=== PATIENT | female | born 1935 | race Caucasian/White ===

== ENCOUNTER → 2017-11-09 | Outpatient (CLI) | payer MEDICARE, OTHER ==
[~2017-11-09] MED LIST: ALPR0.5T72 PO; ASPI-587 PO; ATOR10TA PO; CATHETER FLUSH 10 ML SYR IV PRN; GABA-488 PO; HYDR-3062 PO; LVT.112T PO; MELO-195 PO; METO50TA7 PO; PARO20TA57 PO
[2017-11-09 08:58] VITALS: BP 141/86
--- NOTE | 2017-11-09 20:14 | STRESS TEST ---
DATE OF SERVICE: 11/09/2017 EXERCISE MYOVIEW STRESS TEST REPORT REFERRING PHYSICIAN: Salty Mooney DO Baseline heart rate is 75. Baseline blood pressure 157/91. Baseline EKG is sinus rhythm with no ischemic changes. SUMMARY: The patient was injected with 10.33 mCi of technetium-99 Myoview and the resting images were obtained. Then, the patient started exercising with a baseline heart rate, blood pressure and EKG mentioned above. The patient was able to exercise for a total of 2 minutes 15 seconds on standard Praveen protocol. With peak exercise level, EKG was showing nondiagnostic changes. Blood pressure at peak was 199/92. During recovery, heart rate and blood pressure returned to baseline. EKG returned to baseline. The resting and stress images were reviewed and compared in the short axis, horizontal long axis, and vertical long axis views. Review of the images showed increased extracardiac attenuation, the left ventricle is small in size. There was no significant ischemia or infarction was noted. SSS is 6, SDS 3, TID value 0.99. On the gated images, the left ventricle appeared to be in normal size with normal contractility. Calculated ejection fraction 82%. CONCLUSION: 1. Poor exercise tolerance, a total of 2 minutes 15 seconds on standard Praveen protocol, total of 3.6 METS achieving over 100% of maximum expected heart rate. 2. Hypertensive response to exercise, returned to baseline during recovery. 3. Minimal nondiagnostic EKG changes. 4. Extracardiac attenuation affecting the quality of the images with small left ventricular size, no significant ischemia or infarction was noted on the SPECT images, overall nondiagnostic test. 5. Normal left ventricular size with good contractility. Calculated ejection fraction 82%. Job ID: [id number] DocumentID: [id number] Dictated Date: 11/09/2017 16:35:19 Spiral Runner Date: 11/09/2017 20:13:37 Dictated By: SUMAYA MCCORMICK MD
== END ==
LOC: CARD 07:54
PROVIDERS: ATTEND Internal Medicine Cardiovascular Disease
DX: R94.39 Abnormal result of other cardiovascular function study (principal); R07.89 Other chest pain; R06.00 Dyspnea, unspecified; I10 Essential (primary) hypertension; R00.2 Palpitations; F41.9 Anxiety disorder, unspecified; I34.0 Nonrheumatic mitral (valve) insufficiency
CPT/HCPCS: 78452; 93017; 93306

== ENCOUNTER → 2021-12-01 | Outpatient (CLI) | payer MEDICARE, OTHER ==
[~2021-12-01] MED LIST changes: -CATHETER FLUSH 10 ML SYR IV PRN
== END ==
LOC: CARD 12:00
PROVIDERS: ATTEND Internal Medicine Cardiovascular Disease
DX: I34.0 Nonrheumatic mitral (valve) insufficiency (principal); I11.9 Hypertensive heart disease without heart failure; I25.10 Atherosclerotic heart disease of native coronary artery without angina pectoris; I49.9 Cardiac arrhythmia, unspecified
CPT/HCPCS: 93225; 93226; 93306

== ENCOUNTER → 2022-01-18 | Outpatient (CLI) | payer MEDICARE, OTHER ==
[~2022-01-18] MED LIST changes: +ACET-2267 PO; +ALPR0.5T7 PO; +AMLO-250 PO; +ASPI-1238 PO; +ATOR40TA70 PO; +CATHETER FLUSH 10 ML SYR IVP PRN; +CHOL-34 PO; +DULO60CA59 PO; +FOLI-74 PO; +GABA300C PO; +LEVO100C4 PO; +LOSA100T57 PO; +OMEG100032 PO; +ONDA-105 PO; +PANT40TA52 PO; +POLY30DR6 OP; +REGADENOSON 0.4 MG/5 ML SYR (LEXISCAN) IV ONE; +TIZA-186 PO; +ZINC50TA51 PO
[2022-01-18 09:44] VITALS: BP 197/114
[2022-01-18 09:46] VITALS: BP 178/96
--- NOTE | 2022-01-18 11:44 | Cardiology Stress Test Report ---
Stress Test Report Date of Procedure/Referring: Date of Procedure: Jan 18, 2022 PCP Salty Mooney DO Admitting Physician Admitting Physician: Attending Physician: aMnny Nayak MD Indications: CP Baseline Heart Rate: 69 Baseline Blood Pressure: Blood Pressure Systolic: 178 Blood Pressure Diastolic: 96 Baseline Vitals Vital Signs Date Time Temp Pulse Resp B/P (MAP) Pulse Ox O2 Delivery O2 Flow Rate FiO2 01/18/22 09:44 71 17 197/114 (141) Baseline EKG: Baseline EKG: NSR Summary After explaining the procedure to the patient, she signed a consent and then brought to the stress nuclear laboratory. Patient received 0.4 mg Lexiscan for stress test, ECG, heart rate and blood pressure were monitored continuously. Resting and stress dose of radio tracer were injected, imaging was acquired and reviewed in short axis, horizontal long axis and vertical long axis views. TID: 1.07 SSS: 7 SDS: 6 EF: 89 1. Patient tolerated Lexiscan well 2. Reversible ischemia involving the mid to apical inferior wall and inferoseptum 3. Normal left ventricular size, ejection fraction 89% Copy Copies To 1: SALTY MOONEY BASHAR J MD Jan 18, 2022 11:44
== END ==
LOC: CARD 08:30
PROVIDERS: ATTEND Internal Medicine Cardiovascular Disease
DX: I25.10 Atherosclerotic heart disease of native coronary artery without angina pectoris (principal); I10 Essential (primary) hypertension; R55 Syncope and collapse
CPT/HCPCS: 78452; 93017

== ENCOUNTER 2022-01-20 08:54 | Day surgery (SDC) | payer MEDICARE ==
[2022-01-20] VITALS (10 sets, daily range): BP systolic 135–166; BP diastolic 79–110
[~2022-01-20] VITALS: Ht 175.3 cm; Wt 71.8 kg
[~2022-01-20 08:54] MED LIST changes: -ACET-2267 PO; -ALPR0.5T7 PO; -AMLO-250 PO; -ASPI-1238 PO; -ATOR40TA70 PO; -CATHETER FLUSH 10 ML SYR IVP PRN; -CHOL-34 PO; -DULO60CA59 PO; -FOLI-74 PO; -GABA300C PO; -LEVO100C4 PO; -LOSA100T57 PO; -OMEG100032 PO; -ONDA-105 PO; -PANT40TA52 PO; -POLY30DR6 OP; -REGADENOSON 0.4 MG/5 ML SYR (LEXISCAN) IV ONE; -TIZA-186 PO; -ZINC50TA51 PO
[2022-01-20] MEDS ORDERED: HEParin (CATH LAB) 1,000 ML IV ONE (09:08)
[2022-01-20] MEDS ORDERED: NS IV 1000 ML 1,000 ML ONE (09:08)
[2022-01-20] MEDS ORDERED: LIDOCAINE 1% INJ 20 ML VIAL ONE (09:08)
[2022-01-20] MEDS ORDERED: NS IV 1000 ML 1,000 ML IV SCH ×2 (09:15→11:45)
--- NOTE | 2022-01-20 09:36 | Diagnostic Imaging Report ---
INDICATION: Abnormal stress test. COMPARISON: 04/24/2014 FINDINGS: Heart size and pulmonary vascularity are within normal limits. There is mild air trapping. No pneumothorax, consolidation or pleural fluid is seen. IMPRESSION: No acute abnormality. Dictated by: Dictated on workstation # [id number]
[2022-01-20 09:41] LABS: HEMATOCRIT 36 % (35-52); MEAN CORPUSCULAR HEMOGLOBIN 26 pg (25-34); MEAN CORPUSCULAR HGB CONC 30 g/dL (32-36); MEAN CORPUSCULAR VOLUME 85 fL (80-99); MEAN PLATELET VOLUME 10.1 fL (9.0-12.2); PLATELET COUNT 375 10^3/uL (130-400); WHITE BLOOD COUNT 5.7 10^3/uL (4.3-11.0)
[2022-01-20 09:41] LABS: BILIRUBIN,URINE NEGATIVE (NEGATIVE); CLARITY,URINE CLEAR; COLOR,URINE YELLOW; GLUCOSE, URINE (UA) NEGATIVE (NEGATIVE); KETONES,URINE NEGATIVE (NEGATIVE); LEUKOCYTE ESTERASE ,URINE 1+ (NEGATIVE); NITRITE,URINE NEGATIVE (NEGATIVE); PROTEIN,URINE NEGATIVE (NEGATIVE)
[2022-01-20 09:50] LABS: BACTERIA,URINE TRACE /HPF; HYALINE CASTS, URINE 0-2 /LPF
[2022-01-20 10:00] LABS: POTASSIUM 4.4 MMOL/L (3.6-5.0)
[2022-01-20 10:01] LABS: ALBUMIN 4.2 GM/DL (3.2-4.5); CALCIUM 9.5 MG/DL (8.5-10.1)
[2022-01-20 10:03] LABS: INR 0.9 (0.8-1.4); PROTHROMBIN TIME PATIENT 12.9 SEC (12.2-14.7); TOTAL PROTEIN 7.6 GM/DL (6.4-8.2)
[2022-01-20 10:05] LABS: BILIRUBIN,TOTAL 0.3 MG/DL (0.1-1.0)
[2022-01-20 10:06] LABS: CREATININE SERUM 1.39 MG/DL (0.60-1.30)
[2022-01-20] MEDS ORDERED: FOLI-74 PO (10:31)
[2022-01-20] MEDS ORDERED: GABA300C PO (10:31)
[2022-01-20] MEDS ORDERED: POLY30DR6 OP (10:31)
[2022-01-20] MEDS ORDERED: LOSA100T57 PO (10:31)
[2022-01-20] MEDS ORDERED: DULO60CA59 PO (10:31)
[2022-01-20] MEDS ORDERED: TIZA-186 PO (10:31)
[2022-01-20] MEDS ORDERED: LEVO100C4 PO (10:31)
[2022-01-20] MEDS ORDERED: ATOR40TA70 PO (10:31)
[2022-01-20] MEDS ORDERED: OMEG100032 PO (10:31)
[2022-01-20] MEDS ORDERED: ASPI-1238 PO (10:31)
[2022-01-20] MEDS ORDERED: ONDA-105 PO (10:31)
[2022-01-20] MEDS ORDERED: ACET-2267 PO (10:31)
[2022-01-20] MEDS ORDERED: ALPR0.5T7 PO (10:31)
[2022-01-20] MEDS ORDERED: METO50TA7 PO (10:31)
[2022-01-20] MEDS ORDERED: ZINC50TA51 PO (10:31)
[2022-01-20] MEDS ORDERED: PANT40TA52 PO (10:31)
[2022-01-20] MEDS ORDERED: AMLO-250 PO (10:31)
[2022-01-20] MEDS ORDERED: CHOL-34 PO (10:31)
[2022-01-20] MEDS ORDERED: fentaNYL INJ 100 MCG/2 ML AMP ONE (10:52)
[2022-01-20] MEDS ORDERED: MIDAZOLAM 5 MG/5 ML (VERSED) VIAL ONE (10:52)
[2022-01-20] MEDS ORDERED: HEParin 1000 UNIT/ML (10ML VIAL) FOR BOLUS ONE (11:20)
--- NOTE | 2022-01-20 11:43 | Discharge Inst-Post CATH ---
Discharge Inst-CATH/EP Problems Reviewed?: Yes Post Cardiac Cath/EP D/C Inst Follow Up/Plan Appointment with Dr. Nayak's office in 2 to 4 weeks <b>CARDIAC CATH/EP PROCEDURE DISCHARGE INSTRUCTIONS</b> ACTIVITY * Go Home directly and rest. * Limit activity of the leg (or wrist if it was used) for 7 days including aer obics, swimming, jogging, bicycling, etc. * Restrict stair-climbing for 7 days if possible, if not, climb up with your non-cath leg, then bring together on the same step. * Avoid lifting, pushing, pulling or excessive movement of the affected extremi ty for 7 days. * Customary sexual activity may be resumed after 2 days-use caution not to use a position that strains or causes pain to the affected extremity. * No driving for 24 hours. * NO SMOKING. * Avoid straining for bowel movements for 7 days. * Gentle walking on level ground is allowed. * Returning to work will depend on the type of procedure and the results. Your doctor will discuss this with you. CALL YOUR DOCTOR FOR ANY OF THE FOLLOWING: *If bleeding from the puncture site occurs- Apply gentle pressure to site with clean cloth and call your doctor or EMS. * If a knot or lump forms under the skin, increases in size, or causes pain. * If bruising appears to be worsening or moving further down your leg instead of disappearing. * Temperature above 101 F. CARE OF YOUR GROIN INCISION; * Bruising or purple discoloration of the skin near the puncture site is common. * You may shower only, no bathtub bathing for 5 days. Be careful to avoid slipping as your leg may feel stiff. * If a closure device was used on your femoral artery, please see the attached guide regarding care of the device and your leg. * Leave dressing on FOR 24 hours. CARE OF YOUR WRIST INCISION; * Bruising or purple discoloration of the skin near the puncture site is common. * You may shower. * DO NOT submerge wrist. * Leave dressing on FOR 24 hours. SUMAYA NAYAK MD Jan 20, 2022 11:43
--- NOTE | 2022-01-20 11:44 | Conscious Sedation/ASA ---
Conscious Sedation Pre-Proced Time 11:00 ASA Score 3 For ASA 3 and 4: Consider anesthesia and medical clearance. Also, for patients with a history of failed moderate sedation consider anesthesia. Airway Lungs Heart ASA score ASA 1: a normal healthy patient ASA 2: a patient with a mild systemic disease (mid diabetes, controlled hypertension, obesity x ASA 3: a patient with a severe systemic disease that limits activity (angina, COPD, prior Myocardial infarction) ASA 4: a patient with an incapacitating disease that is a constant threat to life (CHF, renal failure) ASA 5: a moribund patient not expected to survive 24 hrs. (ruptured aneurysm) ASA 6: a declared brain- patient whose organs are being harvested. For emergent operations, add the letter E after the classification Mallampati Classification Grade 3 Sedation Plan Analgesia, Amnesia, Plan communicated to team members, Discussed options with patient/fam, Discussed risks with patient/fam The patient is an appropriate candidate to undergo the planned procedure, sedation, and anesthesia. The patient immediately re-assessed prior to indication. SUMAYA MCCORMICK MD Jan 20, 2022 11:44
[2022-01-20] MEDS ORDERED: PATIENT MAY USE OWN MEDS, ALL PO SCH (11:45)
--- NOTE | 2022-01-20 11:47 | Cardiac Cath Report ---
Cardiac Cath Report Physician (s)/Associate Medical Director (s) Physician SUMAYA MCCORMICK MD Pre-Procedure Diagnosis Pre-Procedure Diagnosis: Coronary artery disease Post-Procedure Note Procedure Start Date: Jan 20, 2022 Name of Procedure: Left heart catheterization Findings/Procedure Note PROCEDURE NOTE: 86-year-old lady with history of hypertension, hyperlipidemia, had an abnormal stress test, scheduled for cardiac catheterization possible PTCA. After explaining the procedure to the patient, all pros and cons were explained, all questions were answered. The patient signed the consent and then she was placed on the cardiac catheterization laboratory. Groin was prepped SL fashion local anesthesia was used. Sheath placed in the artery. Renetta right and left catheter were used to access the coronary system. Renetta right was prolapsed to the left ventricular cavity, pressure was measured, no left ventriculogram was done. At the end of the procedure the sheath was removed. Vascular band was used FINDINGS: Hemodynamics LV 135/16, end-diastolic pressure of 16 Aorta 127/59 mean of 87 ANATOMY: Left Main is free of obstructive disease Left Anterior Descending has mild calcification with mild disease nonobstructive disease Left Circumflex has mild disease nonobstructive disease Right Coronary Artery is dominant artery with mild disease nonobstructive disease LV Gram was not done, pressure was measured CONCLUSION: 1. Mild coronary artery disease nonobstructive disease 2. Normal left ventricular end-diastolic pressure DISCUSSION AND RECOMMENDATION: Abnormal stress test is probably due to small vessel disease and extracardiac attenuation, medical therapy is recommended no intervention is warranted Anesthesia Type: Conscious Sedation Estimated blood loss (mL): 15 ml Contrast Amount: 39 ml Total Radiation Dose: 149 mGy Post-Procedure Diagnosis Post-operative diagnosis: Chest pain Coronary artery disease Hypertension Hyperlipidemia SUMAYA MCCORMICK MD Jan 20, 2022 11:47
== END 2022-01-20 16:20 | disposition home or self-care (01) ==
LOC: CATH 08:54 → CSD 11:47 → CATH 16:20
PROVIDERS: ATTEND Internal Medicine Cardiovascular Disease
DX: I25.10 Atherosclerotic heart disease of native coronary artery without angina pectoris (principal); I10 Essential (primary) hypertension; E78.5 Hyperlipidemia, unspecified; I65.23 Occlusion and stenosis of bilateral carotid arteries; I49.9 Cardiac arrhythmia, unspecified; Z79.82 Long term (current) use of aspirin; Z87.891 Personal history of nicotine dependence
CPT/HCPCS: 36415; 71045; 80053; 80061; 81000; 85027; 85610; 85730; 87081; 87088; 93005; 93458